=== PATIENT | male | born 1985 | race Caucasian/White ===

== ENCOUNTER 2023-07-04 06:28 | Day surgery (SDC) | payer OTHER, SELFPAY ==
[2023-07-04 13:20] VITALS: BP 129/94
[2023-07-04 13:28] VITALS: BMI 27.1
[2023-07-04 13:35] VITALS: BMI 27.1
[2023-07-04 15:47] VITALS: BP 112/86
[2023-07-04 16:00] VITALS: BP 112/82
[2023-07-04 16:15] VITALS: BP 124/97
[2023-07-04 16:30] VITALS: BP 113/89
== END 2023-07-04 16:42 | disposition home or self-care (01) ==
LOC: SDS 06:28
PROVIDERS: ATTENDING PHYSICIAN Internal Medicine Gastroenterology
DX: D12.1 Benign neoplasm of appendix (principal); K63.5 Polyp of colon; K63.89 Other specified diseases of intestine; K64.0 First degree hemorrhoids
CPT/HCPCS: 45390; 45380; 88305

== ENCOUNTER → 2023-07-16 14:24 | Outpatient (REF) | payer OTHER, SELFPAY | LOC: HWRAD 14:24 | PROVIDERS: ATTENDING PHYSICIAN Internal Medicine Gastroenterology; FAMILY PHYSICIAN Family Medicine | DX: R93.3 Abnormal findings on diagnostic imaging of other parts of digestive tract (principal) | CPT/HCPCS: 74177; Q9967 ==

== ENCOUNTER 2023-08-05 06:13 | Day surgery (SDC) | payer OTHER, SELFPAY ==
[2023-08-05] VITALS (16 sets, daily range): BP systolic 98–128; BP diastolic 63–85; BMI 28.0
[2023-08-05] MEDS: TYLENOL 1000 MG PO ×3 (06:29→17:13)
[2023-08-05] MEDS: NORMOSOL-R 1000 IV (06:49)
--- NOTE | 2023-08-05 09:57 | W.IMMPOSTOP ---
Surgical Immed Post Op Note
-
Primary Surgeon: Rd
Assisting: Nacho COOMBS
Pre-op Diagnosis: History of acute appendicitis with perforation
Post-op Diagnosis: Same
Procedure Performed: Laparoscopic converted to open appendectomy and segmental sigmoid resection
Anesthesia Type: GETA
Specimen / Cultures: Appendix; sigmoid colon
Estimated Blood Loss: 10cc
Complications: None immediate
Operative Findings: Densely scarred mass of fatty tissue encasing appendix and tethered to the sigmoid colon; terminal ileum identified and protected, appendix taken at the base with 45mm endo-ANSHUL reyna load stapler; unable to safely dissect appendix
off of sigmoid laparoscopically, converted to lower midline laparotomy, appendiceal tissue digitally pinched off the sigmoid, colotomy identified at this site and this whole area was gnarled around the appendix, thus rather than repair it, this
segment of about 5cm was resected; side-side stapled sigmoid anastomosis with ANSHUL stapler with purple 80mm loads, staple line oversewn with 3-0 vicryl misael
[2023-08-05] MEDS: DILAUDID 0.25 MG IV ×4 (10:17→13:40)
--- NOTE | 2023-08-05 10:18 | OR.RPT ---
Operative Report
Operative Report
Primary Surgeon: Rd
Assisting: Nacho COOMBS
Pre-op Diagnosis: History of acute appendicitis with perforation
Post-op Diagnosis: Same
Procedure Performed: Laparoscopic converted to open appendectomy and segmental sigmoid resection
Anesthesia Type: GETA
Specimen / Cultures: Appendix; sigmoid colon
Estimated Blood Loss: 10cc
Complications: None immediate
Operative Findings: Densely scarred mass of fatty tissue encasing appendix and tethered to the sigmoid colon; terminal ileum identified and protected, appendix taken at the base with 45mm endo-ANSHUL reyna load stapler; unable to safely dissect appendix
off of sigmoid laparoscopically, converted to lower midline laparotomy, appendiceal tissue digitally pinched off the sigmoid, colotomy identified at this site and this whole area was gnarled around the appendix, thus rather than repair it, this
segment of about 5cm was resected; side-side stapled sigmoid anastomosis with ANSHUL stapler with purple 80mm loads, staple line oversewn with 3-0 vicryl misael
Date of Surgery: 08/05/23
Indications: This 38M developed perforated acute appendicitis managed with antibiotics only. Colonoscopy as performed with concern for mucin at the orifice. Interval laparoscopic appendectomy was elected.
Description of procedure: The patient was placed on the operating table in the supine position. General anesthesia was induced. A time-out was completed verifying correct patient, procedure, site, positioning, and special equipment prior to
beginning this procedure. An orogastric tube was placed. The abdomen was prepped and draped in the usual sterile fashion. A stab incision was made in left upper quadrant and the Veress needle was inserted. Proper position was confirmed by aspiration
and saline meniscus test. The abdomen was insufflated with carbon dioxide to a pressure of 12 mmHg. The patient tolerated insufflation well.
A 5mm optical trocar was then inserted at the left lower quadrant. The laparoscope was inserted and the abdomen inspected. No injuries from initial trocar placement or Veress needle insertion were noted. Additional trocars were then inserted in the
following locations: a 12-mm trocar at the umbilicus and a 5-mm trocar midline in the suprapubic space. The abdomen was inspected and no abnormalities were found. The table was placed in the Trendelenburg position with the right side up. The
appendix was not immediately identifiable and the right colon was mobilized off the abdominal wall with the ligasure to enhance exposure. Right colon taenia were traced proximally to the base of the appendix and the appendiceal wall at the base was
visible in this location. A window was created in the appendiceal mesentery and a 45mm reyna load ANSHUL stapler was used to transect the appendix at its base. The stapled edge of the appendix was gently grasped and retracted toward the abdominal wall
and careful blunt dissection was performed in an effort to free the appendix from surrounding scar tissue. The sigmoid colon was noted to be densely scarred in this area. After multiple attempts to separate the appendix and surrounding scar from the
sigmoid colon laparoscopically were unsuccessful, the operation was converted to open. A grasper was placed on the appendix for easy identification. A lower midline incision was created and an thiago wound retractor was placed. The appendix was
brought out through the incision and finger fracture technique was used to bluntly separate the appendix from the sigmoid. This area of sigmoid was noted to be tattooed, and a colotomy was identified in the area where the appendix was peeled away.
This area of sigmoid was badly scarred and the decision was made to resect this segment rather than attempt repair. A ANSHUL stapler with purple 80mm loads was used to create the sigmoid-sigmoid anastomosis in side-side fashion. The staple line was
oversewn with 2-0 vicryl lembert sutures. The mesenteric defect was too small to allow any bowel to pass through.
We then turned our attention to the cecal staple line, which was noted to be hemostatic. The abdomen was irrigated with copious warm sterile saline. Midline fascia was closed with 0 PDS stratafix from superior and inferior directions and oversewn
past each other. Remaining 5mm trocar was removed and skin was closed with stapler. A topical dressing was applied. The orogastric tube was removed.
The patient tolerated the procedure well and was taken to the postanesthesia care unit in stable condition.
[2023-08-05] MEDS: ZOFRAN 4 MG IV ×2 (11:26→16:16)
[2023-08-05] MEDS: ZOSYN 50 IV ×2 (12:31→17:12)
[2023-08-05] MEDS: D5/0.45%NSS with KCL 20 MEQ 1000 IV (13:59)
[2023-08-05] MEDS: DILAUDID 1 MG IV (16:17)
--- NOTE | 2023-08-05 16:30 | PTCARENOTE ---
Received pt from PACU. Pt AAOx3, oriented to room, call francis within reach, and family at bedside. VSS. Abdominal Aquacel dry & intact with small amount of drainage. 4x4 gauze and tape next to Aquacel dry and intact. Pt complaining of Nausea and pain
PRN medications given as ordered see MAR. Pt offers no further complaints at this time.
[2023-08-05] MEDS: LOVENOX 40 MG SC (17:09)
[2023-08-05] MEDS: MOTRIN 600 MG PO (21:45)
[2023-08-06] MEDS: ZOSYN 50 IV ×3 (00:42→11:08)
[2023-08-06] MEDS: TYLENOL PO ×2 (00:42→00:51)
[2023-08-06] MEDS: D5/0.45%NSS with KCL 20 MEQ 1000 IV ×2 (00:44→11:07)
[2023-08-06 03:45] VITALS: BP 102/65
[2023-08-06] MEDS: TYLENOL 1000 MG PO ×2 (06:11→12:10)
[2023-08-06 07:00] VITALS: BP 106/72
[2023-08-06] MEDS: MOTRIN 600 MG PO (10:03)
[2023-08-06 11:15] VITALS: BP 111/74
--- NOTE | 2023-08-06 11:28 | CM ---
Initial assessment completed with patient and who live with their 3 children, 7, 9 and 10 months old. They live in a 2 story home with 3 steps to enter, B/B on and 1/2 bath on , there is a basement, No services, does have a SPC and RW.
No psychiatric history. Pharmacy is [facility] on [facility] in [place] and PCP is Dr. Kirby Robert. Anticipate no needs at discharge. Patient and in agreement.
[2023-08-06] MEDS: MIRALAX 17 GRAMS PO (12:11)
--- NOTE | 2023-08-06 13:04 | W.PN.GS2 ---
Today's Communication / Plan
-
LRD
Poss DC later today
Assessment / Plan
-
38M POD1 s/p lap converted to open interval appendectomy and segmental sigmoid resection
AFVSS, doing well post-op
No complaints
Plan:
Adv to LRD
Cont IV abx for 24 hrs post-op
Ambulate
DVT ppx
PRN pain meds
Possible DC later today
Subjective Data
-
Date of Service: August 06, 2023
AFVSS, pain controlled, ambulating, voiding, passing flatus, debbie clears
Objective Data
-
Intake and Output
08/05/23 08/06/23 08/07/23
06:59 06:59 06:59
Intake Total 2500 / 2500
Output Total 2525 / 2525
Balance -25 / -25
Intake:
Oral fluids 1000 / 1000
IV fluids (Total) 1400 / 1400
D5/0.45%NSS with KCL 20 MEQ 20 200 / 200
meq In 1,000 ml @ 100 mls/hr IV
.Q10H CHRISTEL Rx#:[id number]
normosol 100 / 100
IV piggybacks 100 / 100
Output:
Urine, Voided 2525 / 2525
Vital Signs
Temp Pulse Resp BP Pulse Ox
98.9 F 76 16 111/74 97
08/06/23 11:15 08/06/23 11:15 08/06/23 11:15 08/06/23 11:15 08/06/23 11:15
Physical Exam
-
Gen: NAD
Abd: soft, approp ttp, incisions cdi with some strikethrough to inferior pole of aquacel
[2023-08-06 15:00] VITALS: BP 112/69
--- NOTE | 2023-08-06 16:19 | W.DS.TRANS ---
DC Summary - [employer]
-
Discharge Instructions:
Discharge Diagnosis/Procedures Interval appendectomy and sigmoid colon
resection
Diet No restrictions
Activity No strenuous activity
Bathing Restrictions OK to Shower
Wound Care Remove dressing tomorrow (Sunday 08/06) and
shower without scrubbing the incision. Can cover
with plain dry gauxe after or leave open to the
air.
Instructions:
Stand-Alone Forms:
Changes to Home Medications: No
Discharge Medications:
DC Medications w/original date entered in [employer]
Probiotic 1 cap PO DAILY 08/01/23
oxycodone 5 mg tablet 5 - 10 mg PO Q4HPRN PRN moderate to severe pain #20 tabs 08/06/23
Home Medication Changes
Pending Results: No
--- NOTE | 2023-08-06 16:52 | CM ---
Patient has been medically cleared for discharge to home with no additional skilled services. will transport home.
--- NOTE | 2023-08-06 18:09 | PTCARENOTE ---
Patient discharged home. This RN reviewed discharge instructions with patient and gave patient ordered flu vaccine in R deltoid; patient and spouse verbalized understanding of discharge instructions. IV removed by Pat RN. Patient dressed and
belongings gathered in room independently, gauze provided to patient for midline incision. Patient taken down to car at main lobby via staff escort and wheelchair.
[2023-08-06] MEDS: FLUZONE QUAD 2023-2024 SYRINGE 0.5 ML IM (18:11)
== END 2023-08-06 18:11 | disposition home or self-care (01) ==
LOC: SDS 06:13
PROVIDERS: ATTENDING PHYSICIAN Surgery
DX: C18.1 Malignant neoplasm of appendix (principal); C78.5 Secondary malignant neoplasm of large intestine and rectum; K35.80 Unspecified acute appendicitis
CPT/HCPCS: 44950; 88304; 88307; 88342; 90686; G0008

== ENCOUNTER 2024-01-29 06:15 | Day surgery (SDC) | payer OTHER, SELFPAY ==
[2024-01-29 08:17] VITALS: BMI 28.2
[2024-01-29 08:18] VITALS: BP 126/89; BMI 28.2
[2024-01-29 10:08] VITALS: BP 106/82
[2024-01-29 10:15] VITALS: BP 110/79
[2024-01-29 10:30] VITALS: BP 110/79
== END 2024-01-29 10:37 | disposition home or self-care (01) ==
LOC: SDS 06:15
PROVIDERS: ATTENDING PHYSICIAN Internal Medicine Gastroenterology
DX: Z12.11 Encounter for screening for malignant neoplasm of colon (principal); C18.1 Malignant neoplasm of appendix; K63.89 Other specified diseases of intestine; K64.0 First degree hemorrhoids; Z98.0 Intestinal bypass and anastomosis status
CPT/HCPCS: 45380; 88305